=== PATIENT | female | born 1995 | race Two or more races ===

== ENCOUNTER 2021-07-08 19:27 | Emergency (ER) | payer MEDICAID, OTHER ==
[~2021-07-08] VITALS: Ht 162.6 cm; Wt 93.9 kg
[2021-07-08 20:10] LABS: Urine Bacteria MOD /hpf (None Seen); Urine Blood 2+ /uL (Negative); Urine Mucus FEW (None Seen); Urine Specific Gravity 1.027 (1.001-1.035); Urine WBC 2 /hpf (0 - 5)
[2021-07-08 20:29] LABS: Basophils # (auto) 0 10 ^3/uL (0-0.2); Eosinophils # (auto) 0.1 10 ^3/uL (0-0.8); Eosinophils % (auto) 0.7 % (0.0-7.0); Hemoglobin 10.3 g/dL (12.2-16.2); Mean Corpuscular Hemoglobin 23.7 pg (28.0-32.0); White Blood Cell 12.4 10^3/uL (4.4-10.8)
[2021-07-08 20:30] LABS: Basophils % (auto) 0.2 % (0.0-2.0); Hematocrit 31.8 % (36.0-46.0); Lymphocytes # (auto) 2.2 10 ^3/uL (0.4-5.4); Lymphocytes % (auto) 17.9 % (10.0-50.0); Mean Corpuscular Hgb Conc. 32.3 g/dL (32.0-36.0); Mean Corpuscular Volume 73.4 fL (80.0-100.0); Monocytes % (auto) 8.3 % (0.0-12.0); Neutrophils % (auto) 72.9 % (37.0-80.0); Red Blood Cells 4.34 10^6/uL (4.0-5.20); Red Cell Distribution Width 17.2 % (11.8-14.3)
[2021-07-08 20:45] LABS: Albumin 2.8 g/dL (3.4-5.0); BUN/Creatinine Ratio 18.8; Calcium 8.7 mg/dL (8.5-10.1); Potassium 3.8 mmol/L (3.5-5.1)
[2021-07-08 20:48] LABS: Bilirubin, Total 0.3 mg/dL (0.2-1.0); Total Protein 6.4 g/dL (6.4-8.2)
[2021-07-09 02:00] VITALS: BP 110/62
== END 2021-07-09 02:15 | disposition home or self-care (01) ==
LOC: ER 19:29
DX: O26.892 Other specified pregnancy related conditions, second trimester (principal); D72.829 Elevated white blood cell count, unspecified; Z3A.19 19 weeks gestation of pregnancy
CPT/HCPCS: 36415; 76805; 76817; 80053; 81001; 84702; 85025

== ENCOUNTER 2021-12-02 21:38 | Inpatient (IN) | payer MEDICAID ==
[~2021-12-02] VITALS: Ht 162.6 cm; Wt 102.1 kg
[2021-12-02] MEDS ORDERED: LACTATED RINGER'S 1,000 ML IV SCH (22:00)
[2021-12-02] MEDS ORDERED: PROMETHAZINE HCL 25 MG/ML 1ML IV PRN (22:00)
[2021-12-02] MEDS ORDERED: WITCH HAZEL-GLYCERIN PAD TOP PRN (22:00)
[2021-12-02] MEDS ORDERED: DERMOPLAST 60ML BOTTLE TOP PRN (22:00)
[2021-12-02] MEDS ORDERED: PHISODERM TOP SOLN 240ML BTL TOP PRN (22:00)
[2021-12-02] MEDS ORDERED: BUTORPHANOL TARTRATE 2 MG/1 ML VIAL IV PRN ×2 (22:00)
[2021-12-02] MEDS ORDERED: LIDOCAINE 2%HCL (LOCAL ANESTH.) INJ 10ml MDV IJ PRN (22:00)
[2021-12-02] MEDS ORDERED: OXYTOCIN 10UNIT/ML 1ML VIAL IM ONE (22:15)
[2021-12-02] MEDS ORDERED: LACT. RINGERS/OXYTOCIN 20UNITS 1,000 ML IV SCH (22:15)
[2021-12-02] MEDS ORDERED: LACT. RINGERS/OXYTOCIN 20UNITS 500 ML IV ONE ×2 (22:15→22:45)
[2021-12-02] MEDS ORDERED: TERBUTALINE SULFATE 1 MG/ML 1ML VIAL SC PRN (22:15)
[2021-12-02] MEDS ORDERED: METHYLERGONOVINE MALEATE 0.2 MG/ML AMP IM ONE (22:15)
[2021-12-02] MEDS ORDERED: fentaNYL CITRATE 100 MCG/2 ML VL IV ONE ×3 (22:45→23:45)
[2021-12-02 22:50] LABS: Basophils # (auto) 0 10 ^3/uL (0-0.2); Basophils % (auto) 0.3 % (0.0-2.0); Eosinophils # (auto) 0 10 ^3/uL (0-0.8); Red Cell Distribution Width 16.9 % (11.8-14.3)
[2021-12-02 22:51] LABS: Eosinophils % (auto) 0.1 % (0.0-7.0); Hematocrit 32.6 % (36.0-46.0); Hemoglobin 10.9 g/dL (12.2-16.2); Lymphocytes # (auto) 1.6 10 ^3/uL (0.4-5.4); Mean Corpuscular Hemoglobin 25.5 pg (28.0-32.0); Mean Corpuscular Hgb Conc. 33.5 g/dL (32.0-36.0); Mean Corpuscular Volume 76.2 fL (80.0-100.0); Monocytes # (auto) 1.1 10 ^3/uL (0-1.3); Monocytes % (auto) 10.4 % (0.0-12.0); Neutrophils # (auto) 7.9 10 ^3/uL (1.6-8.6); Neutrophils % (auto) 74.2 % (37.0-80.0); Red Blood Cells 4.28 10^6/uL (4.0-5.20); White Blood Cell 10.6 10^3/uL (4.4-10.8)
[2021-12-02 22:55] LABS: Urine Bacteria FEW /hpf (None Seen); Urine Blood 2+ /uL (Negative); Urine Mucus FEW (None Seen); Urine Specific Gravity 1.026 (1.001-1.035); Urine WBC 2 /hpf (0 - 5)
[2021-12-02 23:14] LABS: INR 0.95 (0.9-1.15); Partial Thromboplastin Time 27.6 sec (23.6-33.0)
[2021-12-02 23:17] LABS: Amphetamine Screen, Urine NEGATIVE (NEGATIVE); Barbiturate Scree,Urine NEGATIVE (NEGATIVE); Benzodiazephine Screen, Urine NEGATIVE (NEGATIVE); Cannabinoid Screen, Urine NEGATIVE (NEGATIVE); Cocaine Screen, Urine NEGATIVE (NEGATIVE); Opiate Scree,Urine NEGATIVE (NEGATIVE); Phencyclidine Screen, Urine NEGATIVE (NEGATIVE)
[2021-12-02 23:18] LABS: Albumin 2.6 g/dL (3.4-5.0); BUN/Creatinine Ratio 13.9; Calcium 8.6 mg/dL (8.5-10.1); Potassium 3.9 mmol/L (3.5-5.1)
[2021-12-02 23:21] LABS: Bilirubin, Total 0.2 mg/dL (0.2-1.0); Total Protein 6.5 g/dL (6.4-8.2)
[2021-12-02] MEDS ORDERED: LACTATED RINGER'S 1,000 ML IV ONE (23:45)
[2021-12-02] MEDS ORDERED: ROPIVACAINE HCL 200 ML EPI SCH (23:45)
[2021-12-02] MEDS ORDERED: ePHEDrine SULFATE 50 MG/ML AMP IV ONE (23:45)
[2021-12-02] MEDS ORDERED: NALOXONE HCL 0.4 MG/ML VIAL IV ONE (23:45)
[2021-12-03] MEDS ORDERED: IBUPROFEN 800 MG TAB PO PRN (04:15)
[2021-12-03] MEDS ORDERED: ACETAMINOPHEN 325 MG TAB PO PRN (04:15)
[2021-12-03] MEDS ORDERED: ONDANSETRON ODT 4 MG TAB PO PRN (04:15)
[2021-12-03] MEDS ORDERED: IBUPROFEN 600 MG TAB PO PRN (04:15)
[2021-12-03 07:25] VITALS: BP 109/44
[2021-12-03 11:21] VITALS: BP 109/52
[2021-12-03 15:30] VITALS: BP 125/61
[2021-12-03 19:00] VITALS: BP 117/71
[2021-12-03] MEDS ORDERED: DOCUSATE SOD 100 MG CAP PO SCH (22:00)
[2021-12-03 22:36] VITALS: BP 120/68
[2021-12-04 07:15] VITALS: BP 118/78
[2021-12-04 08:06] LABS: RPR Non Reactive (Non Reactive)
[2021-12-04] MEDS ORDERED: MEASLES, MUMPS & RUBELLA VAC(MMRII) 0.5ML SC ONE (09:15)
[2021-12-04 09:50] VITALS: BP 118/78
== END 2021-12-04 09:50 | disposition home or self-care (01) | DRG 560 ==
LOC: LDRP 21:38 → OBSVTOIN 21:55 → LDRP 21:56
PROVIDERS: ADMIT Obstetrics & Gynecology Obstetrics; ATTEND Obstetrics & Gynecology Obstetrics
PROC: 10E0XZZ Delivery of Products of Conception, External Approach (ICD-10-PCS; principal; 2021-12-03)
PROC: 3E0R3BZ Introduction of Anesthetic Agent into Spinal Canal, Percutaneous Approach (ICD-10-PCS; 2021-12-03)
PROC: 00HU33Z Insertion of Infusion Device into Spinal Canal, Percutaneous Approach (ICD-10-PCS; 2021-12-03)
PROC: 3E0234Z Introduction of Serum, Toxoid and Vaccine into Muscle, Percutaneous Approach (ICD-10-PCS; 2021-12-04)
DX: O77.0 Labor and delivery complicated by meconium in amniotic fluid (principal); Z37.0 Single live birth; Z20.822 Contact with and (suspected) exposure to COVID-19; Z3A.39 39 weeks gestation of pregnancy; Z23 Encounter for immunization
CPT/HCPCS: 36415; 59025; 59409; 62282; 80053; 80307; 81001; 81002; 85025; 85610; 85730; 86592; 86850; 86900; 86901; 94760; 96360; 96361; 96365; 96366; 96372; 96374; G0378; J2001; J2590